=== PATIENT | female | born 1995 | race Caucasian/White ===

== ENCOUNTER 2017-02-27 18:52 | Outpatient (CLI) | payer OTHER ==
[~2017-02-27] VITALS: Ht 157.5 cm; Wt 64.0 kg
== END 2017-02-27 20:20 | disposition home or self-care (01) ==
LOC: M LDO 18:52
PROVIDERS: ATTEND Advanced Practice Midwife
DX: O36.8130 Decreased fetal movements, third trimester, not applicable or unspecified (principal); Z3A.34 34 weeks gestation of pregnancy

== ENCOUNTER 2017-04-19 08:45 | Inpatient (IN) | payer OTHER ==
[2017-04-19] VITALS (7 sets, daily range): BP systolic 113–129; BP diastolic 60–77
[~2017-04-19] VITALS: Ht 157.5 cm; Wt 72.0 kg
[2017-04-19] MEDS ORDERED: VITA100L PO (09:16)
[2017-04-19] MEDS ORDERED: PRENTAB9 PO (09:16)
[2017-04-19] MEDS ORDERED: VITA400T13 PO (09:17)
[2017-04-19] MEDS ORDERED: LR 1,000 ML IV SCH (10:01)
[2017-04-19 10:43] LABS: MEAN CORPUSCULAR HEMOGLOBIN 32.7 pg (27.0-33.0); MEAN CORPUSCULAR HGB CONC 35.3 g/dl (32.0-36.5); MEAN CORPUSCULAR VOLUME 92.5 fl (80.0-96.0); RED CELL DISTRIBUTION WIDTH 12.2 % (11.5-14.5); WHITE BLOOD COUNT 11.5 K/mm3 (4.0-10.0)
--- NOTE | 2017-04-19 11:15 | HPEPDOC ---
Obstetrical History & Physical General Date of Admission Apr 19, 2017 at 09:21 History of Present Illness 22 y/o with several hours reg ctx's since the early AM. Seen ~930. No VB/ LOF. Pos FM throughout. Chief Complaint: Contractions, term Care Care: Good Care Dating Final EDC by: LMP, 1st trimester (US) Antepartum Course Diagnos(e)s migraines, not for several months Past Medical History Past Obstetrical History : Past Obstetrical History: Primgravida Past Medical History Medical History mild asthma, no meds for several years Migraines Surgical History: Denies/None Family History Significant Family History: No pertinent family hx Social History Marital Status: Family situation: Spouse/partner home Psychosocial History: No pertinent psych hx * Smoker: non-smoker Alcohol: Denies Drugs: denies Abuse Violence Screening Have you been hit/kicked/slapp: No Have you been sexually assault: No Imunizations Tdap status: current Influenza Status: current Allergies Coded Allergies: No Known Allergies (Unverified , 04/19/17) Medications Scheduled Multivitamins/ ( 27-0.8 mg) 1 Tab Tab, 1 TAB PO DAILY Miscellaneous Medications Cholecalciferol (Vitamin D-3) 400 Unit Tab, 400 UNIT PO Cyanocobalamin (Vitamin B 12) 100 Mcg Jorge, 100 MCG PO Physical Examination Physical Examination GENERAL: Alert and oriented times three. BREAST: . ABDOMEN: Gravid and non-tender to touch. FETUS: VTX by sterile vaginal examination (SVE), cx 3/80/-2, EFW 3400 gm HEART RATE: Regular rate and rhythm. LUNGS: Clear to auscultation (CTA). EXTREMITIES: No edema. Vital Signs/I&O Vital Signs Date Time Temp Pulse Resp B/P (MAP) Pulse Ox O2 Delivery O2 Flow Rate FiO2 04/19/17 11:01 98.6 74 20 115/60 (78) Room Air 04/19/17 09:08 98 Laboratory Data 24H LABS Laboratory Tests 2 04/19/17 10:23: CBC/BMP Laboratory Tests 04/19/17 10:23 Red Blood Count 4.06, Mean Corpuscular Volume 92.5, Mean Corpuscular Hemoglobin 32.7, Mean Corpuscular Hemoglobin Concent 35.3, Red Cell Distribution Width 12.2 Pertinent Laboratoy Data Blood Type: A+ RBC Antibody Screen: Positive HIV: Negative Hepatitis B: Negative Hepatitis C: Unknown Rapid Plasma Reagin: Nonreactive Rubella: Immune Varicella: Immune Chlamydia/Gonorrhea: Negative Group B Streptococcus: Negative Quad Screen Test: Declined Cystic Fibrosis: Declined Glucose Tolerance Test: 120 Anatomy Ultrasound Ultrasound Date: Nov 20, 2016 Placenta Location: Posterior Normal Anatomy: Yes Placenta Previa: No Assessment Variability: Moderate Accelerations: Positive Decelerations: None Tocometer Contractions: Yes Frequency: regular Duration: greater than 60 seconds Strength: palpated as moderate Assessment/Plan Assessment Early labor at 41+3. Was scheduled for IOL later today anyway. Will keep and recheck in ~4 hrs, sooner prn. Plan Admit and orient. Registered Occupational Therapist and consent. Diet: clrs Group B Streptococcus (GBS) [negative]. Labs and intravenous (IV) per unit protocol. Counseled on Pitocin and induction of labor (IOL). Lactated Ringers (LR): 125 mL/hr. Anticipatenormal spontaneous delivery () C-S as appropriate. Desires minimal intervention, good disc that as long as fetus/baby is doing well , this is fine. Sessions SESSIONS,EUNICE Hernandez MD Apr 19, 2017 11:15
--- NOTE | 2017-04-19 14:40 | IPNPDOC ---
Text Note Date of Service The patient was seen on 04/19/17. NOTE Last NST Cat1, intermittent monitoring, just got out of the tub. Has been 4-5 hrs since last exam, Cx /-, good progress Doing well, on the edge of active labor. Nothing needed as of yet as far as induction agent. Recheck in 3-4 hrs, sooner prn VS,Fishbone, I+O VS, Fishbone, I+O Laboratory Tests 04/19/17 10:23 Red Blood Count 4.06, Mean Corpuscular Volume 92.5, Mean Corpuscular Hemoglobin 32.7, Mean Corpuscular Hemoglobin Concent 35.3, Red Cell Distribution Width 12.2 Vital Signs Date Time Temp Pulse Resp B/P (MAP) Pulse Ox O2 Delivery O2 Flow Rate FiO2 04/19/17 12:49 99.2 80 20 113/71 (85) Room Air 04/19/17 09:08 98 SESSIONS,EUNICE Hernandez MD Apr 19, 2017 14:40
--- NOTE | 2017-04-19 18:51 | IPNPDOC ---
Text Note Date of Service The patient was seen on 04/19/17. NOTE NST Cat 1, intermittent Cx 5-6//0 Doing well F/U in 2 hrs, sooner prn Sessions VS,Jimmy, I+O VSJimmy, I+O Laboratory Tests 04/19/17 10:23 Red Blood Count 4.06, Mean Corpuscular Volume 92.5, Mean Corpuscular Hemoglobin 32.7, Mean Corpuscular Hemoglobin Concent 35.3, Red Cell Distribution Width 12.2 Vital Signs Date Time Temp Pulse Resp B/P (MAP) Pulse Ox O2 Delivery O2 Flow Rate FiO2 04/19/17 16:37 98.5 18 124/77 (93) Room Air 04/19/17 14:37 71 04/19/17 09:08 98 SESSIONS,EUNICE Hernandez MD Apr 19, 2017 18:50
[2017-04-19] MEDS ORDERED: OXYTOCIN 30 UNITS IN 0.9% NaCl 500ML IV BAG (J2590) As Ordered ONE (21:10)
--- NOTE | 2017-04-19 21:16 | IPNPDOC ---
Text Note Date of Service The patient was seen on 04/19/17. NOTE Walked into room, just checked by RN. Cx 8-9. NST reassuring. Will check in 2 hrs, sooner prn. Sessions Jimmy DUQUE, I+O Jimmy WALDRON I+O Laboratory Tests 04/19/17 10:23 Red Blood Count 4.06, Mean Corpuscular Volume 92.5, Mean Corpuscular Hemoglobin 32.7, Mean Corpuscular Hemoglobin Concent 35.3, Red Cell Distribution Width 12.2 Vital Signs Date Time Temp Pulse Resp B/P (MAP) Pulse Ox O2 Delivery O2 Flow Rate FiO2 04/19/17 16:37 98.5 18 124/77 (93) Room Air 04/19/17 14:37 71 04/19/17 09:08 98 EUNICE WORKMAN MD Apr 19, 2017 21:16
[2017-04-20 01:01] VITALS: BP 124/75
[2017-04-20 02:12] VITALS: BP 118/70
[2017-04-20] MEDS ORDERED: OXYTOCIN DRIP 30 UNITS in APPROPRIATE DILUENT 1 EA IV SCH (02:26)
[2017-04-20] MEDS ORDERED: METOCLOPRAMIDE INJ 10MG/2ML VIAL (J2765) IV PRN (02:30)
[2017-04-20] MEDS ORDERED: IBUPROFEN 800 MG TAB PO PRN (02:30)
[2017-04-20] MEDS ORDERED: RHOGAM 300 MCG (1500 IU) INJ (J2790) IM SCH (02:30)
[2017-04-20] MEDS ORDERED: ACETAMINOPHEN TAB 650MG DOSE (2X325MG) PO PRN (02:30)
[2017-04-20] MEDS ORDERED: MEASLES,MUMPS,RUBELLA VACCINE INJ (MMR-II) (90707) SC SCH (02:30)
[2017-04-20] MEDS ORDERED: LIDOCAINE 1% MDV INJ 50 ML VIAL INFIL ONE (02:30)
[2017-04-20] MEDS ORDERED: DIBUCAINE 1% OINTMENT 30GM TOP PRN (02:30)
--- NOTE | 2017-04-20 02:46 | DNPDOC ---
[facility] Delivery Note Delivery Note DATE OF DELIVERY: [id number] at 0149 PREDELIVERY DIAGNOSIS: 41 3/7 weeks' gestation and labor. POST DELIVERY DIAGNOSIS: Delivered. PROCEDURE: Spontaneous vaginal delivery [employer] SAL[employer] REPRESENTATIVE: Dr. Workman ANESTHESIA: natural ESTIMATED BLOOD LOSS: 400 mL. FINDINGS: 9pound 9ounce male , Score 9/10 DELIVERY SUMMARY: Excellent effort, LOP. Turned to JILLIAN right before vtx delivered. Restitution to LOT then no delay of the ant/post shoulders. To abd , vigorous. Cord C/C by FOB. Cord blood. PLacenta intact with slight traction. Pit going, fundus firm. Small inner left labial lac, not bleeding, not closed. Small 1st degr post vag wall lac closed with 2 figure of eight sutures 3-0 vicryl after 8 cc's 1% lidocaine. Good hemostasis, small pedunculation cut from post vag wall and incorporated into aforementioned closure. Good cosmesis. Uncomplicated. EUNICE WORKMAN MD Apr 20, 2017 02:46
[2017-04-20 03:11] VITALS: BP 126/58
[2017-04-20 03:26] VITALS: BP 122/59
[2017-04-20 04:20] VITALS: BP_SYST 117; BP_SYST 122; BP_DIAS 56; BP_DIAS 59
[2017-04-20] MEDS: PRENATAL VITAMINS CHEWABLE TABLET PO SCH (10:20)
[2017-04-20] MEDS: DOCUSATE SODIUM 100 MG CAP PO SCH ×3 (10:20→22:47)
[2017-04-20 17:58] VITALS: BP 129/73
[2017-04-21 06:00] VITALS: BP 123/66
--- NOTE | 2017-04-21 06:55 | IPNPDOC ---
Progress Note Date of Service The patient was seen on 04/21/17 at 06:52. Progress Note BRIEF SUMMARY OF LABOR AND DELIVERY: PPD # 1 s/p of male 9 lbs 9 oz. with 1 MLL and repair, Doing well. S: Denies HOLDEN, SOB, CP, f/c/n/v. Tolerating a regular diet. Voiding without difficulty, +flatus, no BM at this time. Pt used one wallace-pad overnight. Denies breast sx. Pt is ambulating without difficulty O: A&O x 3, VS WNL, afebrile, HR RRR, no m/r/g, Lungs CTA, abdomen soft NTTP, fundus firm @ U-2 without tenderness, 1MLL well approximated and free of sx of infection, No edema in bilat LE A: 22 yo G1 n P1001 s/p with 1MLL doing well PPD #1. P: Continue routine PP care as appropriate Ambulate Q 1 hour while awake Plan to discharge to home on Friday Continue to assist with as needed Strict pelvic rest for 6-8 weeks Plan for control is progesterone only pill Regular diet Motrin and Tylenol PRN for discomfort VS, I&O, 24H, Fishbone Vital Signs/I&O Vital Signs Date Time Temp Pulse Resp B/P (MAP) Pulse Ox O2 Delivery O2 Flow Rate FiO2 04/21/17 06:00 98.0 56 18 123/66 (85) 99 Room Air TOMAS WHITAKER CNM Apr 21, 2017 06:55
[2017-04-21] MEDS: DOCUSATE SODIUM 100 MG CAP PO SCH (08:02)
[2017-04-21] MEDS: PRENATAL VITAMINS CHEWABLE TABLET PO SCH (08:02)
[2017-04-21] MEDS ORDERED: MOTR200T44 PO (13:43)
[2017-04-21] MEDS ORDERED: COLA100C5 PO (13:43)
[2017-04-21] MEDS ORDERED: DIBU1OIN TOP (13:43)
[2017-04-21] MEDS ORDERED: TYLE325T5 PO (13:43)
== END 2017-04-21 15:51 | disposition home or self-care (01) | DRG 775 ==
LOC: M LDO 08:45 → M LDI 09:21 → M OBS 04-20 05:22
PROVIDERS: ADMIT Obstetrics & Gynecology; ATTEND Obstetrics & Gynecology
PROC: 10E0XZZ Delivery of Products of Conception, External Approach (ICD-10-PCS; principal; 2017-04-20)
PROC: 0HQ9XZZ Repair Perineum Skin, External Approach (ICD-10-PCS; 2017-04-20)
DX: O70.0 First degree perineal laceration during delivery (principal); Z37.0 Single live birth; O48.0 Post-term pregnancy; Z3A.41 41 weeks gestation of pregnancy

== ENCOUNTER 2018-01-02 13:42 | Emergency (ER) | payer OTHER ==
[2018-01-02 14:30] LABS: BASO # 0.1 10^3/uL (0.0-0.2); BASO % 0.5 % (0.0-1.0); EOS % 6.6 % (0.0-3.0); HEMOGLOBIN 14.2 g/dl (12.0-15.5); IMMATURE GRANULOCYTE % 0.4 % (0-3.0); LYMPH # 2.8 10^3/uL (1.5-6.5); LYMPH % 18.6 % (24.0-44.0); MEAN CORPUSCULAR HGB CONC 34.6 g/dl (32.0-36.5); MEAN CORPUSCULAR VOLUME 86.7 fl (80.0-96.0); NEUTROPHILS % 66.9 % (36.0-66.0); PLATELET COUNT, AUTOMATED 373 10^3/uL (150-450); RED BLOOD COUNT 4.73 10^6/uL (4.00-5.40); RED CELL DISTRIBUTION WIDTH 10.9 % (11.5-14.5); WHITE BLOOD COUNT 14.9 10^3/uL (4.0-10.0)
[2018-01-02 14:48] LABS: CONTROL LINE HCG INT CTR LINE PRESENT; HCG, SERUM QUALITATIVE NEGATIVE (NEGATIVE)
[2018-01-02 14:57] LABS: ANION GAP 8 MEQ/L (8-16); BLOOD UREA NITROGEN 15 MG/DL (7-18); CALCIUM LEVEL 9.5 MG/DL (8.5-10.1); CARBON DIOXIDE LEVEL 23 MEQ/L (21-32); CHLORIDE LEVEL 110 MEQ/L (98-107); CREATININE FOR GFR 0.58 MG/DL (0.55-1.30); GLOMERULAR FILTRATION RATE > 60.0 (>60); GLUCOSE, FASTING 78 MG/DL (70-100); POTASSIUM SERUM 3.8 MEQ/L (3.5-5.1); SODIUM LEVEL 141 MEQ/L (136-145)
[2018-01-02] MEDS: KETOROLAC TROMETHAMINE 10 MG TAB PO (16:15)
[2018-01-02 17:14] LABS: KETONE, URINE AUTO RFX 2+ mg/dL (NEGATIVE); LEUKOCYTE ESTERASE UR AUTO RFX NEGATIVE (NEGATIVE); MUCUS, URINE RFX SMALL (NEGATIVE); NITRITE, URINE AUTO RFX NEGATIVE (NEGATIVE); RBC, URINE AUTO RFX 1 /HPF (0-3); SPECIFIC GRAVITY UR AUTO RFX 1.021 (1.002-1.035); SQUAM EPITHELIAL CELL UR AURFX 1 /HPF (0-6); WBC, URINE AUTO RFX 1 /HPF (0-3)
== END 2018-01-02 18:15 | disposition home or self-care (01) ==
LOC: M ED 13:42
DX: R10.32 Left lower quadrant pain (principal); R05 Cough; O91.23 Nonpurulent mastitis associated with lactation; Z79.2 Long term (current) use of antibiotics; Z79.899 Other long term (current) drug therapy
CPT/HCPCS: 76856